=== PATIENT | female | born 1955 | race Hispanic/Latino ===

== ENCOUNTER → 2018-12-12 | Outpatient (CLI) | payer MEDICARE | END | disposition home or self-care (01) | LOC: SHCH 13:03 | PROVIDERS: ATTEND Internal Medicine Cardiovascular Disease | DX: I65.23 Occlusion and stenosis of bilateral carotid arteries (principal); I10 Essential (primary) hypertension | CPT/HCPCS: 93306; 93880 ==

== ENCOUNTER 2019-01-28 05:30 | Day surgery (SDC) | payer MEDICARE ==
[2019-01-27 09:48] LABS: BASOPHILS % (AUTO) 0.9 % (0.0-5.0); EOSINOPHILS % (AUTO) 2.3 % (0.0-8.0); HEMATOCRIT 37.2 % (36-48); LYMPHOCYTES % (AUTO) 33.4 % (21.0-51.0); MEAN CORPUSCULAR HEMOGLOBIN 30.7 pg (27.0-33.0); MEAN CORPUSCULAR HGB CONC 33.7 g/dL (32.0-36.0); MEAN CORPUSCULAR VOLUME 91.1 fL (79-99); MONOCYTES % (AUTO) 6.9 % (3.0-13.0); NEUTROPHILS % (AUTO) 56.5 % (40.0-77.0); PLATELET COUNT (AUTO) 355 K/uL (130-400); RED BLOOD CELL COUNT(AUTO) 4.08 MIL/uL (4.00-5.50); RED CELL DISTRIBUTION WIDTH 13.4 % (11.0-15.5); WHITE BLOOD COUNT (AUTO) 5.3 K/uL (4.8-10.8)
[2019-01-27 09:54] VITALS: BP 186/72
[2019-01-27 09:56] LABS: CREATININE 0.7 mg/dL (0.5-1.5); POTASSIUM 4.5 mmol/L (3.5-5.1)
[2019-01-27 10:00] LABS: INR 0.94 (0.85-1.15); PROTHROMBIN TIME 9.9 SEC (9.6-11.6)
[2019-01-28] VITALS (8 sets, daily range): BP systolic 138–155; BP diastolic 45–66
[~2019-01-28] VITALS: Ht 154.9 cm; Wt 65.1 kg
[~2019-01-28 05:30] MED LIST: AMLO5TAB9 PO; ASPI-555 PO; BACL10TA PO; CLOP75TA14 PO; DEXT1CAP3 PO; GABA-529 PO; HYDR12.54 PO; INSU100V12 SQ; LEVO112T7 PO; LISI40TA4 PO; METF-446 PO
[2019-01-28] MEDS ORDERED: SODIUM CHLORIDE 0.9% 1000ML 1,000 ML IV ONE (06:00)
--- NOTE | 2019-01-28 06:30 | NUR ---
MONITOR DEXICOM MONITOR TO RIGHT LOWER ABDOMEN
[2019-01-28] MEDS ORDERED: METF-446 PO (07:05)
[2019-01-28] MEDS ORDERED: BUPIVACAINE/PF 0.25% 30ML VIAL IJ ONE (08:10)
[2019-01-28] MEDS ORDERED: LIDOCAINE HCL 1% MDV 50ML VIAL ONE (08:10)
[2019-01-28] MEDS ORDERED: CEFAZOLIN SODIUM 1 GM VIAL ONE (08:10)
--- NOTE | 2019-01-28 08:10 | NUR ---
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
[2019-01-28] MEDS ORDERED: MORPHINE SULFATE 4 MG/1ML SYG ONE (09:03)
[2019-01-28] MEDS ORDERED: MIDAZOLAM HCL 1 MG/ML 2ML VIAL ONE (09:03)
[2019-01-28] MEDS ORDERED: FENTANYL CITRATE PF 50 MCG/1 ML 2ML VIAL ONE (09:08)
[2019-01-28] MEDS ORDERED: ACETAMINOPHEN 325 MG TAB PO PRN ×2 (09:45)
--- NOTE | 2019-01-28 09:45 | NUR ---
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 PT AWAKE AND ALERT DENIES ANY PAIN OR DISCOMFORTS. SPOUSE AT BEDSIDE.
[2019-01-28] MEDS ORDERED: AMLODIPINE BESYLATE 5 MG TAB PO SCH (12:00)
[2019-01-28] MEDS ORDERED: HYDROCHLOROTHIAZIDE 25 MG TABLET PO SCH (12:00)
[2019-01-28] MEDS ORDERED: ASPIRIN 81 MG EC TAB PO SCH (12:00)
--- NOTE | 2019-01-28 13:28 | NUR ---
dc dc instructions given to pt/ spouse, instructed to f/u with dr. teague, to keep dressing dry and intact, to take amlodipine,/hctz in with am medications. to resume home meds. left upper chest dressing dry and intact, no hematoma or bleeding noted. piv removed. pt denies any pain or discomforts.
--- NOTE | 2019-01-28 13:35 | NUR ---
DC PT DC HOME VIA WC, NO DISTRESS NOTED. DENIES ANY PAIN OR DISCOMFORTS. LEFT UPPER CHEST DRESSING DRY AND INTACT, NO HEMATOMA OR BLEEDING NOTED. ACCOMPANIED BY SPOUSE
[2019-01-28] MEDS ORDERED: METFORMIN HCL 500 MG TABLET PO SCH (17:00)
[2019-01-28] MEDS ORDERED: BACLOFEN 10 MG TABLET PO SCH (21:00)
[2019-01-28] MEDS ORDERED: INSULIN GLARGINE 100 UNITS/ML 10 ML VIAL SQ SCH (21:00)
[2019-01-29] MEDS ORDERED: LEVOTHYROXINE 112 MCG TABLET PO SCH (06:30)
[2019-01-29] MEDS ORDERED: GABAPENTIN 100 MG CAPSULE PO SCH (09:00)
[2019-01-29] MEDS ORDERED: INSULIN GLARGINE 100 UNITS/ML 10 ML VIAL SQ SCH (09:00)
[2019-01-29] MEDS ORDERED: CLOPIDOGREL BISULFATE 75 MG TAB PO SCH (09:00)
[2019-01-29] MEDS ORDERED: NUEDEXTA PO SCH (09:00)
[2019-01-29] MEDS ORDERED: LISINOPRIL 40 MG TABLET PO SCH (09:00)
== END 2019-01-28 13:35 | disposition home or self-care (01) ==
LOC: DAH 05:30
PROVIDERS: ATTEND Internal Medicine Cardiovascular Disease
DX: R00.2 Palpitations (principal); Z79.899 Other long term (current) drug therapy; Z98.890 Other specified postprocedural states; Z79.01 Long term (current) use of anticoagulants; I10 Essential (primary) hypertension; E78.2 Mixed hyperlipidemia; Z86.73 Personal history of transient ischemic attack (TIA), and cerebral infarction without residual deficits; I65.21 Occlusion and stenosis of right carotid artery; Z79.84 Long term (current) use of oral hypoglycemic drugs; Z79.4 Long term (current) use of insulin; E11.9 Type 2 diabetes mellitus without complications; Z90.710 Acquired absence of both cervix and uterus; Z82.49 Family history of ischemic heart disease and other diseases of the circulatory system; G47.10 Hypersomnia, unspecified
CPT/HCPCS: 33285; 36415; 80048; 82948 ×2; 85025; 85610; 85730; 93005; A4606; C1764; J0690; J3010; J3490 ×2; J7030; J2250; J2270

== ENCOUNTER → 2019-02-12 | Outpatient (CLI) | payer MEDICARE | END | disposition home or self-care (01) | LOC: SLP 20:10 | PROVIDERS: ATTEND Internal Medicine Cardiovascular Disease | DX: G47.30 Sleep apnea, unspecified (principal) | CPT/HCPCS: 95810 ==

== ENCOUNTER → 2019-02-26 | Outpatient (CLI) | payer MEDICARE | END | disposition home or self-care (01) | LOC: SLP 20:31 | PROVIDERS: ATTEND Internal Medicine Cardiovascular Disease | DX: G47.33 Obstructive sleep apnea (adult) (pediatric) (principal) | CPT/HCPCS: 95811 ==

== ENCOUNTER 2021-10-18 05:47 | Day surgery (SDC) | payer MEDICARE ==
[2021-10-13 14:11] LABS: BASOPHILS % (AUTO) 0.7 % (0.0-5.0); EOSINOPHILS % (AUTO) 0.3 % (0.0-8.0); HEMATOCRIT 32.4 % (36-48); LYMPHOCYTES % (AUTO) 26.9 % (21.0-51.0); MEAN CORPUSCULAR HEMOGLOBIN 28.5 pg (27.0-33.0); MEAN CORPUSCULAR VOLUME 86.2 fL (79-99); MONOCYTES % (AUTO) 7.3 % (3.0-13.0); PLATELET COUNT (AUTO) 653 K/uL (130-400); RED BLOOD CELL COUNT(AUTO) 3.76 MIL/uL (4.00-5.50); RED CELL DISTRIBUTION WIDTH 13.5 % (11.0-15.5); WHITE BLOOD COUNT (AUTO) 6.1 K/uL (4.8-10.8)
[2021-10-13 14:25] LABS: INR 1.02 (0.85-1.15); PROTHROMBIN TIME 11.1 SEC (9.6-11.6)
[2021-10-13 14:26] LABS: PARTIAL THROMBOPLASTIN TIME 26.5 SEC (26.3-35.5); POTASSIUM 4.4 mmol/L (3.5-5.1)
[2021-10-17 14:21] VITALS: BP 180/71
[~2021-10-18] VITALS: Ht 152.4 cm; Wt 55.7 kg
[~2021-10-18 05:47] MED LIST changes: -AMLO5TAB9 PO; -ASPI-555 PO; +ASPI-556 PO; +ATOR40TA69 PO; +ATOR40TA71 PO; +BIMA2.5D4 OU; -GABA-529 PO; +GABA600T10 PO; +INSNOV SQ; -LISI40TA4 PO; +LISI40TA9 PO; +METF-444 PO; -METF-446 PO
[2021-10-18 05:55] VITALS: BP 136/65
[2021-10-18] MEDS ORDERED: 0.9% NACL 500ML IV.SOLN 500 ML IV SCH (06:00)
[2021-10-18] MEDS ORDERED: 0.9%NACL 1000ML 1,000 ML IV ONE (06:39)
[2021-10-18] MEDS ORDERED: LIDOCAINE HCL 400MG/20ML VIAL ONE (07:17)
[2021-10-18] MEDS ORDERED: BUPIVACAINE/PF 0.25% 30ML VIAL IJ ONE (07:26)
[2021-10-18] MEDS ORDERED: MIDAZOLAM HCL 1 MG/ML 2ML VIAL ONE (07:42)
[2021-10-18] MEDS ORDERED: FENTANYL CITRATE PF 50 MCG/1 ML 2ML VIAL ONE (07:42)
[2021-10-18 08:20] VITALS: BP 152/55
[2021-10-18 08:35] VITALS: BP 148/60
[2021-10-18 08:50] VITALS: BP 160/51
[2021-10-18 09:00] VITALS: BP 158/56
== END 2021-10-18 09:20 | disposition home or self-care (01) ==
LOC: DAH 05:47
PROVIDERS: ATTEND Internal Medicine Cardiovascular Disease
DX: Z45.09 Encounter for adjustment and management of other cardiac device (principal); R55 Syncope and collapse; I10 Essential (primary) hypertension; G47.33 Obstructive sleep apnea (adult) (pediatric); E78.5 Hyperlipidemia, unspecified; E11.9 Type 2 diabetes mellitus without complications; Z82.49 Family history of ischemic heart disease and other diseases of the circulatory system; Z98.890 Other specified postprocedural states; Z90.710 Acquired absence of both cervix and uterus; Z79.899 Other long term (current) drug therapy; Z79.01 Long term (current) use of anticoagulants; Z86.73 Personal history of transient ischemic attack (TIA), and cerebral infarction without residual deficits
CPT/HCPCS: 33286; 36415; 80048; 82948 ×2; 85025; 85610; 85730; 93005; A4215; A4216; A4221; A4222; A4223 ×3; A4606; A4663; J1644; J2250; J3010; J3490 ×2; J7030; 99156; 99157

== ENCOUNTER → 2022-06-19 | Outpatient (CLI) | payer MEDICARE ==
[~2022-06-19] MED LIST changes: -ATOR40TA69 PO
[2022-06-19 13:00] LABS: ALBUMIN 3.7 g/dL (3.5-5.0); CREATININE 0.6 mg/dL (0.5-1.5); POTASSIUM 4.4 mmol/L (3.5-5.1); TOTAL PROTEIN, SERUM 7.1 g/dL (6.0-8.3)
== END | disposition home or self-care (01) ==
LOC: LAB 10:31
PROVIDERS: ATTEND Internal Medicine Cardiovascular Disease
DX: I65.21 Occlusion and stenosis of right carotid artery (principal); I67.9 Cerebrovascular disease, unspecified
CPT/HCPCS: 36415; 80053; 80061

== ENCOUNTER → 2024-10-21 | Outpatient (CLI) | payer MEDICARE ==
[~2024-10-21] MED LIST changes: +CLOP-31 PO; -CLOP75TA14 PO; +GABA-1405 PO; -GABA600T10 PO; +IOHEXOL 350 MG/ML 100ML INFUS..BTL IV ONE; +metoPROLOL tartRATE 1 MG/ML 5ML VIAL IV ONE
--- NOTE | 2024-10-21 12:21 | HMCIMG ---
CT CARDIAC ANGIO W/CONT. CCTA REASON: CHEST PAIN COMPARISON: None TECHNIQUE: Images are obtained through the heart in the axial plane before and during bolus IV contrast infusion, 100 cc Omnipaque 350. 2-D and 3-D multiplanar reconstruction images were then performed. The injection had to be repeated once due to motion artifact on the first sequence, total contrast volume was 200 cc. FINDINGS: This dictation is for the noncardiac findings only. Cardiac and coronary artery findings are reported separately. Visualized portions of the lungs are clear. There is normal-appearing pulmonary interstitium. There is no hilar or mediastinal lymphadenopathy. Chest wall structures appear unremarkable. IMPRESSION: 1. Unremarkable noncardiac portions of CT cardiac angiography.
== END | disposition home or self-care (01) ==
LOC: RAH 08:16
PROVIDERS: ATTEND Internal Medicine Cardiovascular Disease
DX: R07.9 Chest pain, unspecified (principal)
CPT/HCPCS: 75574; J3490 ×2; Q9967 ×2